=== PATIENT | male | born 1975 | race Caucasian/White ===

== ENCOUNTER 2018-05-22 02:46 | Emergency (ER) | payer BC ==
[~2018-05-22] VITALS: Ht 185.4 cm; Wt 83.9 kg
[2018-05-22 03:01] LABS: BASO % 0.5 % (0.0-1.0); EOS # 0.3 10*3/uL (0.0-0.4); EOS % 3.2 % (1.0-4.0); HEMATOCRIT 43.5 % (42.0-52.0); HEMOGLOBIN 14.6 g/dl (14.0-18.0); LYMPH % 22.8 % (27.0-41.0); MEAN CELL VOLUME 92.9 fl (80.0-94.0); MEAN CORPUSCULAR HGB 31.2 pg (27.0-31.0); MEAN CORPUSCULAR HGB CONC 33.6 g/dl (33.0-37.0); MEAN PLATELET VOLUME 8.8 fl (9.6-12.3); MONO % 10.8 % (3.0-9.0); NEUT # 5.5 10*3/uL (2.3-7.9); NEUT % 62.4 % (47.0-73.0); PLATELET COUNT AUTOMATED 234 10*3/uL (130-400); RED BLOOD COUNT 4.68 10*6/uL (4.50-5.90); RED CELL DISTRI WIDTH 12.1 % (0-14.5); WHITE BLOOD COUNT 8.9 10*3/uL (4.8-10.8)
[2018-05-22 03:18] LABS: ALBUMIN 3.8 gm/dl (3.1-4.5); ALKALINE PHOSPHATASE 83 U/L (45-117); BUN 10 mg/dl (7-24); CHLORIDE 101 mmol/L (98-107); CREATININE 0.83 mg/dL (0.70-1.30); LIPASE 87 U/L (73-393); POTASSIUM 4.1 mmol/L (3.5-5.1); SGOT/AST 69 IU/L (3-35); SGPT/ALT 111 U/L (12-78); SODIUM 138 mmol/L (136-145); TOTAL PROTEIN 8.1 gm/dL (6.4-8.2)
[2018-05-22 03:27] LABS: BILIRUBIN NEGATIVE (NEGATIVE); BLOOD TRACE-INTACT (NEGATIVE); CLARITY CLEAR (CLEAR); COLOR YELLOW (YELLOW); GLUCOSE NEGATIVE (NEGATIVE); KETONE NEGATIVE (NEGATIVE); LEUKO ESTERASE NEGATIVE (NEGATIVE); NITRITE NEGATIVE (NEGATIVE); SPECIFIC GRAVITY 1.025 (1.005-1.030)
[2018-05-22 03:51] LABS: BACTERIA TRACE; WBC 0-2 wbc/hpf (0-5)
[2018-05-22] MEDS ORDERED: KETOROLAC10 MG PO (04:05)
== END 2018-05-22 04:04 | disposition home or self-care (01) ==
LOC: ED 02:46
PROVIDERS: Student in an Organized Health Care Education/Training Program
DX: R10.9 Unspecified abdominal pain (principal)